=== PATIENT | male | born 1950 | race Caucasian/White ===

== ENCOUNTER 2018-01-09 16:30 | Emergency (ER) | payer MEDICARE ==
[2018-01-09 16:58] VITALS: TEMP 98.2
--- NOTE | 2018-01-09 18:25 | ED ---
General Adult HPI - General Source: patient, RN notes reviewed Mode of arrival: wheelchair Limitations: no limitations <Fadi Chatterjee - Last Filed: 01/09/18 20:03> <Pradip Diallo - Last Filed: 01/09/18 20:10> - General Chief complaint: Fall Stated complaint: Fall/Shoulder pain Time Seen by Provider: 01/09/18 17:57 - History of Present Illness Initial comments: 67-year-old male presents to the emergency department for multiple complaints. Patient states that about 3 hours ago he was walking out of the bathroom when he tripped and fell. Patient states that he fell and hit his head. Patient denies loss of consciousness. Patient denies being on blood thinners. Patient denies any sort of headache or visual changes at this time. Patient does complain of left shoulder pain worsened with movement. Patient states he is unable to lift his left hand. Patient denies numbness or tingling in the left hand. Patient denies any neck or back pain. Patient states he also fell on his left knee but he is walking on it without difficulty. Patient also complains of left rib pain that worsens when he takes a deep breath. Patient denies any cough. Patient denies any shortness of breath. Patient has no other complaints at this time including shortness of breath, chest pain, abdominal pain, nausea or vomiting, headache, or visual changes. (Fadi Chatterjee) - Related Data Home Medications Medication Instructions Recorded Confirmed Valsartan/Hydrochlorothiazide 1 tab PO DAILY 01/09/18 01/09/18 [Valsartan-Hctz 160-25 mg Tab] amLODIPine [Norvasc] 5 mg PO DAILY 01/09/18 01/09/18 Allergies Allergy/AdvReac Type Severity Reaction Status Date / Time No Known Allergies Allergy Verified 01/09/18 18:25 Review of Systems ROS Other: All systems not noted in ROS Statement are negative. <Fadi Chatterjee - Last Filed: 01/09/18 20:03> ROS Other: All systems not noted in ROS Statement are negative. <Pradip Diallo - Last Filed: 01/09/18 20:10> ROS Statement: Those systems with pertinent positive or pertinent negative responses have been documented in the HPI. Past Medical History Past Medical History: Hypertension, Thyroid Disorder History of Any Multi-Drug Resistant Organisms: None Reported Additional Past Surgical History / Comment(s): 2010 leg "infection surgery" Past Psychological History: No Psychological Hx Reported Smoking Status: Never smoker Past Alcohol Use History: None Reported Past Drug Use History: None Reported <Fadi Chatterjee - Last Filed: 01/09/18 20:03> General Exam Limitations: no limitations General appearance: alert, in no apparent distress Head exam: Present: atraumatic, normocephalic, normal inspection Eye exam: Present: normal appearance, PERRL, EOMI. Absent: scleral icterus, conjunctival injection ENT exam: Present: normal exam, normal oropharynx, mucous membranes moist, TM's normal bilaterally, normal external ear exam Neck exam: Present: normal inspection. Absent: tenderness, meningismus, full ROM, lymphadenopathy, thyromegaly Respiratory exam: Present: normal lung sounds bilaterally, chest wall tenderness (left side lower later tenderness around rib 9, no step offs or contusions.). Absent: respiratory distress, wheezes, rales, rhonchi, stridor Cardiovascular Exam: Present: regular rate, normal rhythm, normal heart sounds. Absent: systolic murmur, diastolic murmur, rubs, gallop, clicks Extremities exam: Present: normal capillary refill (Capillary refill less than 2 seconds and radial pulse 2+ in the left upper extremity), other (Sensation intact in the left upper extremity. Equipment Service Technician strength 5 out of 5 in upper extremities bilaterally). Absent: full ROM (Patient has about 15 of flexion and abduction of the left shoulder), tenderness (No tenderness of the left shoulder or AC joint), joint swelling Back exam: Absent: tenderness Neurological exam: Present: alert, oriented X3, CN II-XII intact, other (GCS 15) . Absent: motor sensory deficit Psychiatric exam: Present: normal affect, normal mood <Fadi Chatterjee - Last Filed: 01/09/18 20:03> Course <Fadi Chatterjee - Last Filed: 01/09/18 20:03> <Pradip Diallo - Last Filed: 01/09/18 20:10> Vital Signs 01/09/18 01/09/18 16:53 20:05 Temperature 98.2 F Pulse Rate 70 65 Respiratory 16 18 Rate Blood Pressure 152/82 165/88 O2 Sat by Pulse 97 96 Oximetry - Reevaluation(s) Reevaluation #1: 01/09/18 20:09 PA supervision: I personally saw and examined the patient I reviewed and agree with the PAs findings including all diagnostic interpretations treatment plans is written unless otherwise stated. (Pradip Diallo) Medical Decision Making <Fadi Chatterjee - Last Filed: 01/09/18 20:03> <Pradip Diallo - Last Filed: 01/09/18 20:10> - Medical Decision Making 67-year-old here for multiple complaints after a fall occurring 3 hours ago. Patient complaining of left rib and shoulder pain as well as hitting his head. No loss of consciousness no blood thinners. No headache. On exam neurovascular intact in the left upper extremity. 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 Neurovascular intact. Patient does have limited range of motion of the shoulder to 15 flexion and abduction. No focal neuro deficit on exam. Lungs clear to auscultation bilaterally. X-ray of the left shoulder shows no acute abnormality. No fracture or dislocation. X-ray of the left ribs shows no fractures. Lungs are clear. CT brain shows mild cortical atrophy without any acute intracranial abnormality. No fracture in the cervical spine. Patient likely has a sprain of the left shoulder as well as a contusion of the left ribs. He will follow up with orthopedics in one to 2 days. Discussed deep breathing 10 times every hour to prevent pneumonia with rib injury. Discussed returning to the emergency department if he has any worsening symptoms. (Fadi Chatterjee) Disposition Is patient prescribed a controlled substance at d/c from ED?: No Time of Disposition: 19:51 <Fadi Chatterjee - Last Filed: 01/09/18 20:03> <Pradip Diallo - Last Filed: 01/09/18 20:10> Clinical Impression: Shoulder pain, left, Contusion of rib on left side Disposition: HOME SELF-CARE Condition: Good Instructions: Shoulder Pain (ED), Rib Contusion (ED) Additional Instructions: Please take Motrin or Tylenol for pain. Please rest and ice the left shoulder. Follow-up with orthopedics in one to 2 days for shoulder pain. For rib pain, be sure to take 10 deep breaths every hour while awake to prevent pneumonia. Return to the emergency department if you have any worsening symptoms. Otherwise follow-up with primary care in 1-2 days. Referrals: Frederick Ross MD [Primary Care Provider] - 1-2 days Andrew Noel DO [Doctor of Osteopathic Medicine] - 1-2 days
--- NOTE | 2018-01-09 18:57 | XR ---
EXAMINATION TYPE: XR shoulder complete LT DATE OF EXAM: 01/09/2018 COMPARISON: NONE HISTORY: Pain after falling TECHNIQUE: 3 views FINDINGS: I see no fracture nor dislocation. Joint spaces are fairly normal. There are no pathologic calcifications at the greater tuberosity. IMPRESSION: No acute abnormality of the left shoulder.
--- NOTE | 2018-01-09 18:58 | XR ---
EXAMINATION TYPE: XR ribs LT w pa chest xray DATE OF EXAM: 01/09/2018 COMPARISON: NONE HISTORY: Pain after falling TECHNIQUE: 5 views FINDINGS: Heart and mediastinum are normal. Lungs are clear of consolidation. There is no sign of ple ural effusion or pneumothorax. Left ribs appear intact. I see no rib fracture. IMPRESSION: Normal chest. Negative left rib exam.
--- NOTE | 2018-01-09 19:24 | CT ---
EXAMINATION TYPE: CT brain vivian greco DATE OF EXAM: 01/09/2018 COMPARISON: None HISTORY: Fall. CT DLP: 1685 mGycm Automated exposure control for dose reduction was used. TECHNIQUE: CT scan of the head and cervical spine are performed without contrast. FINDINGS: There is some cerebral cortical atrophy. There is no mass effect nor midline shift. There is no sign of intracranial hemorrhage. The calvarium is intact. There is straightening of the cervical spine. There is some disc space narrowing at C4-5 C5-6 with mi ld spurring. The facet joints are intact. Skull base is intact. There is no evidence of a fracture. IMPRESSION: Mild cerebral cortical atrophy. No acute intracranial abnormality. Mild left-sided ethmoid sinusitis noted. Spondylotic changes in the lower cervical spine. No fracture.
[2018-01-09 20:06] VITALS: BP 165/88; PULSE 65; RESP 18
== END 2018-01-09 20:12 | disposition home or self-care (01) ==
LOC: EC 16:30
DX: S20.212A Contusion of left front wall of thorax, initial encounter (principal); M25.512 Pain in left shoulder; G31.9 Degenerative disease of nervous system, unspecified; R40.2412 Glasgow coma scale score 13-15, at arrival to emergency department; I10 Essential (primary) hypertension; Z79.899 Other long term (current) drug therapy; W01.10XA Fall on same level from slipping, tripping and stumbling with subsequent striking against unspecified object, initial encounter; Y93.01 Activity, walking, marching and hiking
CPT/HCPCS: 70450; 72125; 99284